=== PATIENT | male | born 1995 | race Caucasian/White ===

== ENCOUNTER 2017-02-25 23:58 | Emergency (ER) | payer SELFPAY ==
[2017-02-26] MEDS ORDERED: diphenhydrAMINE HCL 50 MG/ML VIAL IV ONE (00:11)
[2017-02-26] MEDS ORDERED: diphenhydrAMINE HCL 50 MG/ML VIAL ONE (00:14)
--- NOTE | 2017-02-26 00:20 | ERNOTE ---
Dyspnea - General Presenting Symptoms: other - throat tightness Time Seen by Provider: 02/26/17 00:06 Source: patient, family Exam Limitations: no limitations - Immun/Allergies/Home Medications Immunizations: IMMUNIZATION HX Immunizations Up to Date No History of Influenza Vaccine No Hx Pneumococcal Vaccination No Allergies/Adverse Reactions: Allergies ibuprofen Adverse Reaction (Intermediate, Verified 02/26/17 00:06) Other Home Medications: HOME MEDICATIONS Amoxicillin 500 mg PO TID 02/26/17 [Last Taken Unknown] - History of Present Illness Narrative: Pt was diagnosed with strep throat and was taking ibuprofen 800mg for pain. He has had a mild reaction to ibuprofen in the past but did not expect it to happen again. He then began to have more throat pain and throat tightness and was brought to the ED. 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 Associated Symptoms-Dyspnea: Reports: fever/chills, wheezing Review of Systems - Review of Systems Constitutional: Present: recent illness, fever EYE: Present: no symptoms reported ENT: Present: nose congestion, sore throat Respiratory: Present: shortness of breath, cough Cardiology: Present: no symptoms reported Gastrointestinal/Abdominal: Present: nausea. Absent: vomiting, abdominal pain Genitourinary: Present: no symptoms reported Musculoskeletal: Present: no symptoms reported Skin: Absent: rash Neurological: Present: dizziness/light-headedness, tingling - of his feet Endocrine: Present: no symptoms reported Hematologic/Lymphatic: Present: no symptoms reported Psych: Present: no symptoms reported - Patient's Past Medical History Patient History - Medical: No pertinent hx, Other Patient History - Cardiac/Respiratory: No pertinent hx Patient History - Cancer: No Hx of Cancer Patient History - Surgical Procedures: Other Patient History - Other: None - Social History Living Situations: spouse Abuse History: No History of abuse Psych History: No pertinent hx Smoking Status: Never smoker Have you smoked in the past 12 months: No Do you dip or chew tobacco: No Alcohol Use: none Drug Use: none - Immunizations Immunizations Up to Date: No Hx Pneumococcal Vaccination: No History of Influenza Vaccine: No Physical Exam - Physical Exam General Appearance: Present: wd/wn, alert, mild distress, anxious Head Exam: Present: normal inspection, no evidence of injury Eye Exam: Normal inspection: bilateral, PERRL: bilateral, EOMI: bilateral Ears, Nose, Throat: Present: nasal congestion, pharyngeal erythema - mild Neck: Present: normal inspection, nontender Respiratory: Present: no respiratory distress, normal breath sounds, lungs clear Cardiovascular/Chest: Present: no murmur, normal peripheral pulses, tachycardia Gastrointestinal/Abdominal: Present: normal bowel sounds, nontender Extremity Exam: Present: normal inspection, normal range of motion, no edema Neurological Exam: Present: alert, oriented Skin Exam: Present: normal color, warm/dry Lymphatic Exam: Present: no adenopathy ED Progress - Vital Signs Vital Signs: Vital Signs 02/26/17 00:00 Temperature 38.1 C H Pulse Rate 100 Respiratory 22 H Rate Blood Pressure 137/80 O2 Sat by Pulse 100 Oximetry - Progress/Reassessment Chief Complaint: Dyspnea Departure Clinical Impression: Pharyngitis Qualifiers: Pharyngitis/tonsillitis etiology: unspecified etiology Qualified Code(s): J02.9 - Acute pharyngitis, unspecified - Departure Disposition: Home self-care Condition: Good Instructions: Pharyngitis, [id number] Additional Instructions: You may continue to take your antibiotics until Saturday. If you don't hear from anyone here about the culture you can stop your antibiotics. You may also call the hospital about your results but I cannot be sure if they will give you results over the phone. You may take Tylenol or Ibuprofen as needed for pain or fever over 101.
[2017-02-26] MEDS ORDERED: ACETAMINOPHEN 500 MG TABLET PO ONE (00:33)
[2017-02-26 00:35] LABS: Hematocrit 41.6 % (42.0-52.0); Hemoglobin 14.2 gm/dL (13.5-18.0); Mean Cell Volume 82.5 fl (78-100); Mean Corpuscular Hemoglobin 28.2 pg (27-31); Mean Corpuscular Hgb Conc 34.1 g/dl (32-36); Neutrophil # 7.7 K/mm3 (1.3-6.0); Neutrophil % 74.5 % (42-75.0); Platelet Count 123 K/mm3 (150-450); Red Blood Count 5.04 M/mm3 (4.7-6.0); Red Cell Distribution Width 12.6 % (11.5-14.0); White Blood Count 10.3 K/mm3 (4.0-10.5)
[2017-02-26 00:59] LABS: Albumin * 3.9 gm/dl (3.4-5.0); Anion Gap 12.7 mmol/L (6.8-13.8); BUN/Creatinine Ratio 12.5 (9.0-21.6); Bilirubin, Total 0.7 mg/dL (0.0-1.1); Ca. Corrected For Albumin 8.6 mg/dL (8.4-10.2); Calcium * 8.8 mg/dL (7.9-10.9); Potassium 3.7 mmol/L (3.4-4.6); TSH * 1.718 uIU/mL (0.358-3.74); Total Protein 7.3 gm/dL (6.2-8.2)
[2017-02-26] MEDS ORDERED: KETOROLAC TROMETHAMINE 30 MG/ML VIAL IV ONE (01:11)
[2017-02-26] MEDS ORDERED: KETOROLAC TROMETHAMINE 30 MG/ML VIAL ONE (01:12)
[2017-02-26] MEDS ORDERED: ONDANSETRON HCL/PF 2 MG/ML VIAL ONE (01:19)
[2017-02-26] MEDS ORDERED: ONDANSETRON HCL/PF 2 MG/ML VIAL IV ONE (01:20)
[2017-02-26 02:41] VITALS: BP 113/53
== END 2017-02-26 02:35 | disposition home or self-care (01) ==
LOC: ER 23:58
DX: J02.9 Acute pharyngitis, unspecified (principal); R50.9 Fever, unspecified
CPT/HCPCS: 36415; 80053; 84443; 85025; 86308; 87081; 87430; 96374; 96375; 99284; J2405